=== PATIENT | female | born 1995 | race Caucasian/White ===

== ENCOUNTER 2025-04-12 22:18 | Emergency (ER) | payer BC, SELFPAY ==
[2025-04-12 22:23] VITALS: BP 159/103
--- NOTE | 2025-04-13 00:15 | ED.GENMED ---
History of Present Illness
General
Chief Complaint: Musculo-Skeletal Complaint
Source: patient
Exam Limitations: none
Time Seen by Provider: 04/12/25 23:59
Nursing documentation reviewed up to this point in time: agreed with
History of Present Illness
History of Present Illness:
29-year-old with past medical history of hypertension, ADHD, who presents to the emergency department today with concerns of right wrist pain following getting hit with a softball. Patient reports that she was playing softball this evening when
someone hit the softball and it landed directly on her wrist, hitting the anterior surface of her wrist. Patient mainly had sharp pain at the time and she said there is a lot of swelling as well. Patient reports that she is able to move her wrist
but she has a lot of discomfort with flexion of her wrist. She also notes some burning pain and intermittent numbness and tingling. She denies any other injuries. She denies any other falls. She has not take any blood thinners.
Past History
Past History
ED Past Medical History: None
ED Past Surgical History: None
Social History
Tobacco: Non-smoker
Alcohol: None
Drug: None
Living: with family
Review of Systems
Review of Systems
All Other Systems: ROS reviewed and negative except as documented in HPI and ROS
Phy Exam
Physical Exam
Physical Exam:
General: Patient is well appearing and in no acute distress; non-toxic
Skin: Warm and dry, small area of ecchymosis over right anterior wrist.
Head: Normocephalic, atraumatic
Eyes: Sclera non-icteric. EOMs intact.
Cardiac: Regular rate
Peripheral Vascular: 2+ radial and ulnar pulses
Pulm: Normal respiratory effort
Musculoskeletal: Tenderness to palpation over the right lateral wrist/right scaphoid. Full ROM of phalanges. No tenderness over metacarpals. Limited wrist flexion secondary to pain. No proximal tenderness. Full range of motion of the right elbow.
Neuro: CN II-XII intact, no focal neurologic deficits.
Psychiatric: Appropriate mood and affect.
Course
Orders/Labs/Results
Orders:
Orders
04/12/25 22:25
Wrist, Right 3 Views [CR Wrist - Right Min 3 Views] Urgent
Comment:
Reason For Exam: injury
04/13/25 00:38
Ibuprofen [Motrin] 600 mg PO NOW STA
04/13/25 00:41
[place] Wrist Right-Tx ONCE
04/13/25 00:46
Ibuprofen [Motrin] 600 mg .ROUTE .STK-MED ONE
Vital Signs
Initial and Last Documented VS:
Initial Vital Signs
Temp Pulse Resp BP Pulse Ox
98 F 95 16 159/103 95
04/12/25 22:23 04/12/25 22:23 04/12/25 22:23 04/12/25 22:23 04/12/25 22:23
Last Documented Vital Signs
Temp Pulse Resp BP Pulse Ox
98 F 95 16 159/103 95
04/12/25 22:23 04/12/25 22:23 04/12/25 22:23 04/12/25 22:23 04/12/25 22:23
MDM/Problems Addressed
Differential Diagnosis Includes:
Differentials include wrist contusion, scaphoid fracture, metacarpal fracture, distal radius fracture, distal ulnar fracture
MDM/Problems Addressed:
29-year-old female with past medical history of hypertension, gastroparesis, presents emergency department today with concerns of wrist pain following blunt trauma with a softball. In physical exam, she is some ecchymosis over the right anterior
surface of the wrist and some tenderness over the lateral wrist however she is neurovascularly intact. Her x-ray does not show any evidence of scaphoid fracture or metatarsal fracture. Patient was placed in a universal wrist splint. Advised
patient to follow-up with orthopedics for repeat x-ray and to ensure healing of this injury. Patient stable for discharge.
*Pulse Oximetry
Patient hypoxic: no
*Critical Care Note
Total Time (30-74mins, 75-104mins- exclusive of procedures): Not Applicable
ED Attending Note
-
Portions of this chart may have been created with voice recognition software.� Occasional wrong word or��sound alike� substitutions may have occurred due to the inherent limitations of voice recognition software.
Discharge Plan
Departure
Patient Disposition: Home (Routine Discharge)
Date of Disposition: 04/13/25
Time of Disposition: 00:52
Patient with high blood pressure during this ER visit?: Yes
Condition: Good
Discharge Problem:
Contusion of right wrist
Instructions: Wrist Sprain ED, BLOOD PRESSURE
Prescriptions:
No Action
dextroamphetamine-amphetamine 10 MG tablet
10 mg PO TID
amitriptyline 10 MG tablet
10 mg PO DAILY
hydrochlorothiazide 25 MG tablet
25 mg PO DAILY
escitalopram oxalate 10 MG tablet
10 mg PO DAILY
Totaytulla
1 mg PO DAILY
ondansetron 4 MG tablet,disintegrating
4 mg PO TIDPRN PRN (Reason: nausea/vomiting) Qty: 13 0RF
pantoprazole 40 MG tablet,delayed release (DR/EC)
40 mg PO DAILY Qty: 30 0RF
Referrals:
Melecio Roy MD [Family Provider, Internal Medicine]
Yrn Holland MD [Active, Orthopedics] - Call in 1-3 days for appt
Stand Alone Forms: Return to Work
Activity Restrictions/Additional Instructions:
Please call attached number to schedule appointment to see orthopedics.
Please continue to wear your splint.
Please keep your wrist elevated at home. You apply ice to the area.
PLEASE RETURN EMERGENCY DEPARTMENT SHOULD YOU DEVELOP COMPLETE LOSS OF SENSATION IN YOUR WRIST, INCREASING SWELLING, PALLOR, DISCOLORATION, OR ANY OTHER SIGNS OR SYMPTOMS WORRISOME TO YOU.
Interventions
Interventions:
*Risk Screen - Suicide Last Done: 04/12/25 22:24
*General Assessment Last Done: 04/12/25 22:31
*Neglect/Abuse Screening Last Done: 04/12/25 22:24
*ED- Fall Risk Assessment Last Done: 04/12/25 22:31
*ED COVID-19 Vaccine History Last Done: 04/12/25 22:31
*Nursing Disposition Last Done: 04/13/25 00:49
ED-Musculoskeletal Assessment Last Done: 04/12/25 22:31
Discharge Date and Time
Discharge Date/Time: 04/13/25 01:04
Print Language: CITIZEN OF [place]
[2025-04-13] MEDS: MOTRIN 600 MG PO (00:46)
== END 2025-04-13 01:04 | disposition home or self-care (01) ==
LOC: EMR 22:18
PROVIDERS: EMERGENCY PHYSICIAN Student in an Organized Health Care Education/Training Program; FAMILY PHYSICIAN Internal Medicine
DX: S60.211A Contusion of right wrist, initial encounter (principal); R20.0 Anesthesia of skin; R20.2 Paresthesia of skin; W21.07XA Struck by softball, initial encounter; Y93.64 Activity, baseball; Y92.320 Baseball field as the place of occurrence of the external cause; I10 Essential (primary) hypertension; F90.9 Attention-deficit hyperactivity disorder, unspecified type
CPT/HCPCS: 99283; 29125; 73110